=== PATIENT | male | born 1985 | race Caucasian/White ===

== ENCOUNTER 2021-06-17 17:31 | Emergency (ER) | payer OTHER ==
[2021-06-17] MEDS ORDERED: BACTRIM DS TAB1 EACH PO (19:43)
== END 2021-06-17 19:52 | disposition home or self-care (01) ==
LOC: ER1 17:31
DX: J02.8 Acute pharyngitis due to other specified organisms (principal); F17.200 Nicotine dependence, unspecified, uncomplicated; Z20.822 Contact with and (suspected) exposure to COVID-19
CPT/HCPCS: 87081; 87880; 99283; U0002